=== PATIENT | female | born 1935 | race Two or more races ===

== ENCOUNTER 2017-03-04 18:52 | Emergency (ER) | payer MEDICARE, MEDICAID ==
[~2017-03-04] VITALS: Ht 167.6 cm; Wt 73.0 kg
[2017-03-04] MEDS ORDERED: UNK MEDS (19:15)
[2017-03-04 19:23] VITALS: BP 142/78
[2017-03-04] MEDS ORDERED: DiphenhydrAMINE 50mg/ml Inj IM ONE (19:45)
--- NOTE | 2017-03-04 19:47 | Emergency Room Report ---
History of Present Illness General Chief Complaint: Allergic Reaction Source: Patient Present Illness HPI 72 YO Female presents to the ED c/o itching and swelling of bilateral thighs, abdomen and back, and upper extremities, acute onset after taking OTC Taiwanese pain pill of unknown substance approximately 3 hours ago. pt took one capsule of oral Benadryl and topical application of calamine lotion with some mild relief at onset of rash. Pt continues to have itching and swelling. denies wheezes, SOB, CP, swelling of the lips or tongue. denies difficulty breathing. Pt states she has hx of chronic joint pain, and took the unknown pill to provide pain relief. denies trauma or fall. Allergies: Coded Allergies: No Known Allergies (Unverified , 03/04/17) Patient History Past Medical History: see triage record Past Surgical History: unable to obtain Pertinent Family History: none Now: No Immunizations: UTD Reviewed Nursing Documentation: PMH: Agreed, PSxH: Agreed Nursing Documentation-PMH Past Medical History: No Stated History Review of Systems All Other Systems: negative except mentioned in HPI Physical Exam Vital Signs Date Time Temp Pulse Resp B/P Pulse Ox O2 Delivery O2 Flow Rate FiO2 03/04/17 19:10 97.7 73 16 166/83 98 Room Air Sp02 EP Interpretation: reviewed, normal General Appearance: no apparent distress, alert, GCS 15, non-toxic Head: normocephalic, atraumatic Eyes: bilateral eye PERRL, bilateral eye normal inspection ENT: hearing grossly normal, normal pharynx, no angioedema, normal voice Neck: full range of motion, supple/symm/no masses Respiratory: lungs clear, normal breath sounds, speaking full sentences Cardiovascular #1: regular rate, rhythm, no edema Musculoskeletal: back normal, gait/station normal, normal range of motion, non- tender Neurologic: alert, oriented x3, responsive, motor strength/tone normal, sensory intact, speech normal Psychiatric: judgement/insight normal, memory normal, mood/affect normal Skin: normal color, warm/dry, well hydrated, rash - swollen urticarial type rash that is confluent to the abdomen, bilateral thighs, the flank area, and back. Lymphatic: no adenopathy Medical Decision Making PA Attestation Dr. Muri is my supervising Physician whom patient management has been discussed with. Diagnostic Impression: Primary Impression: Allergic reaction Qualified Codes: T78.40XA - Allergy, unspecified, initial encounter ER Course Pt. presents to the ED c/o itching and swelling of bilateral thighs, abdomen and back, and upper extremities, acute onset after taking OTC monegasque pain pill of unknown substance approximately 3 hours ago. pt took one capsule of oral Benadryl and topical application of calamine lotion with some mild relief at onset of rash. Pt continues to have itching and swelling. Ddx considered but are not limited to cellulitis, allergic reaction, angio edema , abscess Vital signs: are WNL, pt. is afebrile H&PE are most consistent with allergic reaction to ingested medication. no evidence of airway compromise. ORDERS: none required at this time, the diagnosis is clinical ED INTERVENTIONS: -IM Benadryl -IM Solumedrol DISCHARGE: At this time pt. is stable for d/c to home. Will provide printed patient care instructions, and any necessary prescriptions. Care plan and follow up instructions have been discussed with the patient prior to discharge. Last Vital Signs Date Time Temp Pulse Resp B/P Pulse Ox O2 Delivery O2 Flow Rate FiO2 03/04/17 19:23 97.7 84 16 142/78 98 Room Air Disposition: HOME, SELF-CARE Condition: Stable Scripts Acetaminophen* (TYLENOL EXTRA STRENGTH*) 500 Mg Tablet 500 MG ORAL Q6H, #30 TAB 0 Refills Prov: Karon Hunt 03/04/17 Diphenhydramine Hcl (BENADRYL ALLERGY) 25 Mg Tablet 25 MG PO Q6HR, #20 TAB Prov: Karon Hunt 03/04/17 Patient Instructions: Drug Allergy Additional Instructions: Take medications as directed. Follow up with PCP in 3-5 days Return sooner to ED if new symptoms occur, or current symptoms become worse. Do not drink alcohol, drive, or operate heavy machinery while taking Benadryl as this may cause drowsiness. - Please note that this Emergency Department Report was dictated using [employer] driver technology software, occasionally this can lead to erroneous entry secondary to interpretation by the dictation equipment. Karon Hunt March 04, 2017 19:47
[2017-03-04] MEDS ORDERED: BENADRYL ALLERG25 M1 PO (19:50)
[2017-03-04] MEDS ORDERED: TYLENOL EXTRA500 MG ORAL (19:51)
[2017-03-04] MEDS ORDERED: Solu-MEDROL 125mg Inj IM ONE (20:00)
== END 2017-03-04 20:12 | disposition home or self-care (01) ==
LOC: EMR 19:45
DX: L29.9 Pruritus, unspecified (principal); T50.905A Adverse effect of unspecified drugs, medicaments and biological substances, initial encounter; R60.9 Edema, unspecified
CPT/HCPCS: 96372; 99284; J1200; J2930

== ENCOUNTER 2017-11-13 18:54 | Emergency (ER) | payer MEDICAID, MEDICARE ==
[~2017-11-13] VITALS: Ht 154.9 cm; Wt 68.0 kg
[~2017-11-13 18:54] MED LIST: BENADRYL ALLERG25 M1 PO; TYLENOL EXTRA500 MG ORAL; UNK MEDS
--- NOTE | 2017-11-13 19:37 | Emergency Room Report ---
History of Present Illness General Chief Complaint: Flu Like Symptoms Source: Patient Present Illness HPI 82-year-old female with pmhx hypertension p/w cough runny nose for 7 days. Pt states cough is productive, with clear non bloody sputum. + Subjective fever chills. + sob NO chest pain. + runny nose or myalgias. No sick contacts or recent travel. Patient does not smoke. The patient is fully functional elderly lady, lives by herself, however her family lives only mildly. Her granddaughter is at bedside, states that she sees the patient every day. She has still been able to eat and drink normally. Allergies: Coded Allergies: No Known Allergies (Unverified , 03/04/17) Patient History Past Medical History: see triage record Past Surgical History: none Pertinent Family History: none Reviewed Nursing Documentation: PMH: Agreed, PSxH: Agreed Nursing Documentation-PMH Past Medical History: No History, Except For Hx Hypertension: Yes Review of Systems All Other Systems: negative except mentioned in HPI Physical Exam Vital Signs Date Time Temp Pulse Resp B/P (MAP) Pulse Ox O2 Delivery O2 Flow Rate FiO2 11/13/17 18:58 98.2 91 18 154/73 97 Room Air Sp02 EP Interpretation: reviewed, normal General Appearance: other - Elderly female, calm and cooperative, does not appear to be in distress Head: normocephalic, atraumatic Eyes: bilateral eye normal inspection, bilateral eye PERRL, bilateral eye EOMI ENT: normal ENT inspection, normal pharynx, normal voice, moist mucus membranes Neck: normal inspection, full range of motion, supple Respiratory: normal inspection, lungs clear, normal breath sounds, no respiratory distress, no retraction, no wheezing, speaking full sentences, chest symmetrical Cardiovascular #1: normal inspection, regular rate, rhythm, no edema, normal capillary refill Cardiovascular #2: 2+ radial (R), 2+ radial (L) Gastrointestinal: normal inspection, non tender, soft, non-distended, no guarding Musculoskeletal: normal inspection, back normal, normal range of motion, non- tender Neurologic: normal inspection, alert, oriented x3, responsive, motor strength/ tone normal, sensory intact, normal gait, speech normal Psychiatric: normal inspection, judgement/insight normal, memory normal Skin: normal inspection, normal color, no rash, warm/dry, well hydrated, normal turgor Medical Decision Making Diagnostic Impression: Primary Impression: Influenza-like symptoms ER Course 82-year-old female fever chills cough runny nose Appears well hydrated, and nontoxic DDX: Viral URI vs. pneumonia Plan: chest x-ray ER course: Patient remains nontoxic, not in resp distress. Vital signs are normal. Patient is not hypoxic CXR obtained - no acute infiltrate Disposition: Patient is to be discharged home with a prescription of Tessalon Perles and shea flu Strict precautions discussed with patient and her granddaughter on when to return to the emergency room including hemoptysis, high fevers, chills, SOB, chest pain unable to eat or unable to get out of bed. Which may indicate severe illness. Patient will be staying with family for the next 2 days. Patient is to follow up with their primary care doctor within 5 days. Patient agrees with plan. Please note that this Emergency Department Report was dictated using [employer] auditor technology software, occasionally this can lead to erroneous entry secondary to interpretation by the dictation equipment EKG Diagnostic Results EP Interpretation: Yes Rate: normal Rhythm: NSR ST Segments: No acute changes ASA given to patient: No Rhythm Strip EP Interpretation: Yes Rate: 70 Rhythm: NSR, no PVCs, no ectopy Chest X-ray CXR: Ordered: Yes 1 view Indication: Cough EP interpretation: Yes Interpretation: No consolidation, no effusion, no PTX, no acute cardiopulmonary disease Impression: No acute disease Electronically signed by Caesar Azul MD Last Vital Signs Date Time Temp Pulse Resp B/P (MAP) Pulse Ox O2 Delivery O2 Flow Rate FiO2 11/13/17 18:58 98.2 91 18 154/73 97 Room Air Disposition: HOME, SELF-CARE Condition: Improved Scripts Benzonatate* (TESSALON PERLE*) 100 Mg Capsule 100 MG ORAL THREE TIMES A DAY for 7 Days, #21 PERLE Prov: RetinoCaesar M.D. 11/13/17 Acetaminophen* (TYLENOL EXTRA STRENGTH*) 500 Mg Tablet 500 MG ORAL Q8H Y for Prn Headache/Temp > 101, #30 TAB 0 Refills Prov: JossoAlisiairose M.D. 11/13/17 Oseltamivir Phosphate (Tamiflu) 75 Mg Capsule 75 MG ORAL TWICE A DAY for 5 Days, #10 CAP 0 Refills Prov: JossCaesar kwon M.D. 11/13/17 Caesar Azul M.D. Nov 13, 2017 19:37
[2017-11-13] MEDS ORDERED: TESSALON PERLE100 MG ORAL (19:40)
[2017-11-13] MEDS ORDERED: TYLENOL EXTRA500 MG ORAL (19:40)
[2017-11-13] MEDS ORDERED: TAMIFLU75 MG ORAL (19:40)
[2017-11-13 19:46] LABS: APPEARANCE,URINE CLEAR; BILIRUBIN, URINE NEGATIVE (NEGATIVE); COLOR,URINE PALE YELLOW; GLUCOSE, URINE (UA) NEGATIVE (NEGATIVE); KETONES,URINE NEGATIVE (NEGATIVE); LEUKOCYTE ESTERASE ,URINE NEGATIVE (NEGATIVE); NITRITE,URINE NEGATIVE (NEGATIVE); PH,URINE 6.5 (4.5-8.0); PROTEIN,URINE NEGATIVE (NEGATIVE); UROBILINOGEN,URINE NORMAL MG/DL (0.0-1.0)
[2017-11-13 20:56] VITALS: BP 146/71
[2017-11-13 20:57] VITALS: BP 136/69
--- NOTE | 2017-11-14 10:41 | Diagnostic Imaging Report ---
Indication: Shortness of breath Technique: XRAY Chest 1v Comparison: None Findings: Heart size within upper limits for normal. Mediastinal contours are within normal limits. There is no focal consolidation, pneumothorax or pleural effusion. Osseous structures demonstrate no acute abnormality. Impression: No radiographic evidence of acute cardiopulmonary disease. This corresponds with the preliminary interpretation by the treating ER physician as documented in the electronic medical record.
--- NOTE | 2017-11-18 14:37 | Cardiology Report ---
APPROVED REPORT EKG Measurement Heart [id number] Sinus rhythm with marked sinus arrhythmia Otherwise normal ECG
== END 2017-11-13 20:00 | disposition home or self-care (01) ==
LOC: EMR 19:13
DX: J11.1 Influenza due to unidentified influenza virus with other respiratory manifestations (principal); I10 Essential (primary) hypertension
CPT/HCPCS: 71045; 81003; 93005; 99284